=== PATIENT | male | born 1990 | race Caucasian/White ===

== ENCOUNTER 2017-11-29 23:30 | Emergency (ER) | payer OTHER ==
[~2017-11-29] VITALS: Ht 167.6 cm; Wt 117.0 kg
[~2017-11-29 23:30] MED LIST: BACTRIM,SEPT1 TABLET PO; BYSTOLIC20 MG PO; HYDRODIURIL,ORE25 MG PO; IBUPROFEN800 MG PO; LISINOPRIL40 MG PO; MUPIROCIN15 GM TP; OMEPRAZOLE20 MG PO; PROAIR HFA8.5 GM IH; VALIUM5 MG PO; VITAMIN D400 UNI1 PO; [UNRECOGNIZED DRUG - OTHER] TP
[2017-11-30] LABS: HEMATOCRIT 43.1 % (38.0-50.0); HEMOGLOBIN 14.4 G/DL (12.5-16.6); MCH 28.3 PG (29.0-34.0); MCHC 33.4 G/DL (30.0-36.0); MCV 84.7 FL (86-99); PLATELET COUNT 322 K/uL (156-360); RBC DIS.WIDTH-CV 13.2 % (11.8-14.6); RBC DIS.WIDTH-SD 40.8 % (39-53); RED BLOOD COUNT 5.09 M/uL (4.00-5.50)
[2017-11-30 00:24] LABS: CHLORIDE 104 MEQ/L (99-109); SODIUM 139 MEQ/L (136-147)
[2017-11-30 00:30] LABS: CREATININE 0.8 MG/DL (0.6-1.3); GFR ESTIMATE (CALCULATED) > 59 mL/min/ (58.99-99999); GLUCOSE 89 mg/dL (70-99); UREA NITROGEN (BUN) 8 mg/dL (9-23)
[2017-11-30 08:20] LABS: TROP-I INTERPRETATION NEGATIVE; TROPONIN-I < 0.01 ng/mL (0.0-0.30)
[2017-11-30] MEDS ORDERED: NAPROSYN500 MG PO (08:53)
[2017-11-30 09:11] VITALS: BP 145/78
== END 2017-11-30 09:11 | disposition home or self-care (01) ==
LOC: EME 23:30
PROVIDERS: Emergency Medicine
DX: R07.9 Chest pain, unspecified (principal); M54.5 Low back pain; I10 Essential (primary) hypertension; K21.9 Gastro-esophageal reflux disease without esophagitis; Z88.2 Allergy status to sulfonamides
CPT/HCPCS: 71046; 80048; 84484; 85027; 85379; 93005; 99281; 99285

== ENCOUNTER 2018-04-23 20:45 | Emergency (ER) | payer OTHER ==
[~2018-04-23] VITALS: Ht 170.2 cm; Wt 181.6 kg
[~2018-04-23 20:45] MED LIST changes: +NAPROSYN500 MG PO
[2018-04-23] MEDS ORDERED: CLEOCIN300 MG PO (22:58)
[2018-04-23 23:13] VITALS: BP 134/62
== END 2018-04-23 23:13 | disposition home or self-care (01) ==
LOC: RME 20:45 → EME 20:45 → RME 23:13
DX: L03.116 Cellulitis of left lower limb (principal); M79.662 Pain in left lower leg; M79.89 Other specified soft tissue disorders; I10 Essential (primary) hypertension; J45.909 Unspecified asthma, uncomplicated; Z88.2 Allergy status to sulfonamides
CPT/HCPCS: 93971; 99281; 99283